=== PATIENT | female | born 1980 | race Caucasian/White ===

== ENCOUNTER → 2021-05-15 | Outpatient (CLI) | payer BC ==
[~2021-05-15] MED LIST: AZULFIDINE PO; AZULFIDINE500 MG/TAB PO; BIRTH CONTROL PO; CYMBALTA30 MG PO; FOLIC ACID5 MG/ML PO; IMURAN 50MG TAB50 MG PO; LOESTRIN 1/20 28 DAY PO; MELOXICAM15 MG PO; MILLIPRED5 MG PO; NECON 1/35 35 M1 TAB PO; NORTREL; NORTRIPTYLINE25 MG PO; OXYCODONE5 MG PO; PAMELOR 25MG25 MG PO; PROTONIX 40MG T40 MG PO; REMICADE V100 MG/VIA IV; SKELAXIN400 MG PO; SULFASALAZINE; ZANTAC 150MG T150 MG PO; [UNRECOGNIZED DRUG - OTHER]
== END ==
LOC: MC.RAD 11:00
DX: Z12.31 Encounter for screening mammogram for malignant neoplasm of breast (principal); N63.10 Unspecified lump in the right breast, unspecified quadrant

== ENCOUNTER → 2021-05-25 | Outpatient (CLI) | payer BC | LOC: MC.RAD 07:37 | DX: N63.12 Unspecified lump in the right breast, upper inner quadrant (principal) ==

== ENCOUNTER → 2021-05-31 | Outpatient (CLI) | payer BC | LOC: MC.RAD 09:57 | DX: N63.10 Unspecified lump in the right breast, unspecified quadrant (principal) ==